=== PATIENT | male | born 1960 | race Caucasian/White ===

== ENCOUNTER → 2019-03-31 10:32 | Outpatient (POV) | payer OTHER, SELFPAY ==
[2019-03-31 10:50] VITALS: BP 142/73; PULSE 76; RESP 18; O2SAT 98; BMI 32.0
--- NOTE | 2019-04-01 08:59 | HMH.PMCON ---
Assessment and Plan (1) Back pain Current visit: Yes Status: Chronic Qualifiers: Back pain location: low back pain Chronicity: chronic Back pain laterality: bilateral Sciatica presence: with sciatica Sciatica laterality: bilateral sciatica Qualified Code(s): M54.42 - Lumbago with sciatica, left side; M54.41 - Lumbago with sciatica, right side; G89.29 - Other chronic pain Category: Medical Code(s): M54.9 - Dorsalgia, unspecified - Assessment and plan all Dx Assessment and Plan for all problems:: Patient would like medication management I discussed with him that we do not do this. Patient is not a narcotic candidate due to his marijuana use along with no recent imaging. Patient has not failed conservative measures in regards to his pain management. I did encourage the patient to find a pacemaker clinic who does medication management if that is what he is looking for and that he is more than welcome to come back anytime if he is interested in injections. Dr. Jefferson has reviewed this note and agrees with this plan of care. This note was dictated using voice recognition software and may contain errors or omissions HPI - Data of Consult Consult date: 03/31/19 Requesting Physician: Zoraida Du APRN Primary Care Provider: Calli Tafoya - Consult Narrative Reason for consult: Back pain History of present illness: Mr. Rodrigues is a 58 year old male who presents today for consultation in regards to his low back pain. Patient moved up here from [place]. Patient states he is lived in [place] and [place] and went to pain clinics in both locations. He was on gabapentin on OxyContin. Patient states that he does not have any recent imaging. Patient rates his pain a 5 out of 10 and states is chronic. Patient has bilateral leg pain. Patient also states that he is smoking marijuana. Patient is not interested in any injective therapy or any other means of controlling his pain other than pain medication at this time. CC: Zoraida Du APRN [facility] History I have reviewed the patient's past medical history: Yes Medical History: Reports:: Diabetes Mellitus Type 2, Hyperlipidemia, Hypertension *Have you ever received a pneumonia vaccine?: Yes *Have you received a flu vaccine this season?: Yes - *Social History Smoking Status: Current every day smoker Tobacco Type: cigarettes # Packs/Day (cigarettes): 1 Alcohol Intake: never Substance Use Type: marijuana *Occupational Status:: other Housing: house Household Members: other *Travel in the last 8 weeks: None Family Hx:: Unable to obtain Review of Systems - Review of Systems ROS General: no recent weight change, no fever, no sleep disturbances Respiratory: no cough, no shortness of air, no recurring pulmonary infections Cardiovascular/Peripheral Vascular: No chest pain, No palpitations, no edema, no shortness of breath. Gastrointestinal: no new onset incontinence, normal bowel movements reported Genitourinary: no new onset incontinence Musculoskeletal: Pain, leg pain Psychiatric: normal mood/ affect Neurological: [denies new onset weakness in extremities], [denies new onset balance issues] Objective Vital signs: Pulse Resp BP Pulse Ox 76 18 142/73 H 98 03/31/19 10:50 03/31/19 10:50 03/31/19 10:50 03/31/19 10:50 Narrative: Physical Exam General: Alert and oriented x3, no acute distress, pleasant and cooperative, [on room air] Lungs: Resps E/U, Symmetrical chest expansion, Eyes: PERRL Musculoskeletal: Flexion and extension of lumbar spine somewhat guarded secondary to pain, deep tendon reflexes normal, strength in upper and lower extremities [5/5], [abnormal gait noted] Neurological: speech clear, stave jointer equal, no gross sensory deficits
--- NOTE | 2019-04-01 09:03 | P.CONS_ITS ---
Assessment and Plan (1) Back pain Current visit: Yes Status: Chronic Qualifiers: Back pain location: low back pain Chronicity: chronic Back pain laterality: bilateral Sciatica presence: with sciatica Sciatica laterality: bilateral sciatica Qualified Code(s): M54.42 - Lumbago with sciatica, left side; M54.41 - Lumbago with sciatica, right side; G89.29 - Other chronic pain Category: Medical Code(s): M54.9 - Dorsalgia, unspecified - Assessment and plan all Dx Assessment and Plan for all problems:: Patient would like medication management I discussed with him that we do not do this. Patient is not a narcotic candidate due to his marijuana use along with no recent imaging. Patient has not failed conservative measures in regards to his pain management. I did encourage the patient to find a pacemaker clinic who does medication management if that is what he is looking for and that he is more than welcome to come back anytime if he is interested in injections. Dr. Jefferson has reviewed this note and agrees with this plan of care. This note was dictated using voice recognition software and may contain errors or omissions HPI - Data of Consult Consult date: 03/31/19 Requesting Physician: Zoraida Du APRN Primary Care Provider: Calli Tafoya - Consult Narrative Reason for consult: Back pain History of present illness: Mr. Rodrigues is a 58 year old male who presents today for consultation in regards to his low back pain. Patient moved up here from [place]. Patient states he is lived in [place] and [place] and went to pain clinics in both locations. He was on gabapentin on OxyContin. Patient states that he does not have any recent imaging. Patient rates his pain a 5 out of 10 and states is chronic. Patient has bilateral leg pain. Patient also states that he is smoking marijuana. Patient is not interested in any injective therapy or any other means of controlling his pain other than pain medication at this time. CC: Zoraida Du APRN [facility] History I have reviewed the patient's past medical history: Yes Medical History: Reports:: Diabetes Mellitus Type 2, Hyperlipidemia, Hypertension *Have you ever received a pneumonia vaccine?: Yes *Have you received a flu vaccine this season?: Yes - *Social History Smoking Status: Current every day smoker Tobacco Type: cigarettes # Packs/Day (cigarettes): 1 Alcohol Intake: never Substance Use Type: marijuana *Occupational Status:: other Housing: house Household Members: other *Travel in the last 8 weeks: None Family Hx:: Unable to obtain Review of Systems - Review of Systems ROS General: no recent weight change, no fever, no sleep disturbances Respiratory: no cough, no shortness of air, no recurring pulmonary infections Cardiovascular/Peripheral Vascular: No chest pain, No palpitations, no edema, no shortness of breath. Gastrointestinal: no new onset incontinence, normal bowel movements reported Genitourinary: no new onset incontinence Musculoskeletal: Pain, leg pain Psychiatric: normal mood/ affect Neurological: [denies new onset weakness in extremities], [denies new onset balance issues] Objective Vital signs: Pulse Resp BP Pulse Ox 76 18 142/73 H 98 03/31/19 10:50 03/31/19 10:50 03/31/19 10:50 03/31/19 10:50 Narrative: Physical Exam General: Alert and oriented x3, no acute distress, pleasant and cooperative, [on room air] Tin
== END ==
PROVIDERS: PCP Family Medicine; Visit Provider Clinical Nurse Specialist Family Health
DX: M54.41 Lumbago with sciatica, right side (principal); M54.42 Lumbago with sciatica, left side; G89.29 Other chronic pain
CPT/HCPCS: 99202